=== PATIENT | male | born 1990 | race Caucasian/White ===

== ENCOUNTER 2017-12-01 19:25 | Emergency (ER) | payer MEDICAID ==
[~2017-12-01] VITALS: Ht 177.8 cm; Wt 82.0 kg
[2017-12-01] MEDS ORDERED: ONDANSETRON HCL 4MG/2ML VIAL IV STA (23:08)
[2017-12-01] MEDS ORDERED: KETOROLAC 30MG/ML VIAL IV STA (23:08)
[2017-12-01] MEDS ORDERED: SODIUM CHLORIDE 0.9% 1,000 ML IV ONE (23:08)
[2017-12-01 23:35] LABS: BASOPHILS % 0.3 % (0.0-2.0); EOSINOPHILS % 3.1 % (0.0-5.0); HEMATOCRIT. 43.4 % (42.0-52.0); HEMOGLOBIN. 15.5 g/dL (14.0-18.0); LYMPHOCYTES % 18.3 % (20.0-50.0); MEAN CORPUSCULAR HEMOGLOBIN 32.1 pg (28.0-32.0); MONOCYTES % 12.4 % (2.0-8.0); NEUTROPHILS % 65.9 % (40.0-76.0); PLATELET 326 x1000/uL (130-400); RED BLOOD CELL COUNT 4.82 mill/uL (4.7-6.1); RED CELL DISTRIBUTION WIDTH 13.9 % (11.6-14.6)
[2017-12-01 23:45] LABS: CHLORIDE 104 mEq/L (98-107)
[2017-12-01 23:49] LABS: ETHANOL BLOOD < 10 mg/dL
[2017-12-02 05:32] VITALS: BP 99/52
== END 2017-12-02 05:30 | disposition home or self-care (01) ==
LOC: ER 19:25
DX: K80.10 Calculus of gallbladder with chronic cholecystitis without obstruction (principal); K76.0 Fatty (change of) liver, not elsewhere classified
CPT/HCPCS: 36415; 76705; 80053; 83690; 85025; 96361; 96374; 96375; 99285; G0482; J1885; J2405; J7030; Z7610